=== PATIENT | female | born 1955 | race Caucasian/White ===

== ENCOUNTER 2019-09-30 20:53 | Emergency (ER) | payer MEDICARE ==
--- NOTE | 2019-10-01 08:40 | RAD ---
RIGHT WRIST 3 VIEWS: INDICATION: Fall with right wrist pain. FINDINGS: There is a heavily comminuted intraarticular, dorsally impacted distal radius fracture. There is a d isplaced ulnar styloid process fracture. 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 No additional ac tonto apache fracture is grossly evident. IMPRESSION: 1. Dorsally impacted intraarticular distal radius fracture. 2. Mildly displaced ulnar styloid process fracture. POS: BH
== END 2019-09-30 23:32 | disposition home or self-care (01) ==
LOC: MADERS 20:53
DX: S52.611A Displaced fracture of right ulna styloid process, initial encounter for closed fracture (principal); S52.571A Other intraarticular fracture of lower end of right radius, initial encounter for closed fracture; F41.9 Anxiety disorder, unspecified; W19.XXXA Unspecified fall, initial encounter
CPT/HCPCS: 29125